=== PATIENT | male | born 1940 | race Caucasian/White ===

== ENCOUNTER → 2021-02-04 | Outpatient (REF) | payer MEDICARE, OTHER | LOC: M LAB REF 12:55 | PROVIDERS: ATTEND Internal Medicine Nephrology | DX: N18.2 Chronic kidney disease, stage 2 (mild) (principal) ==

== ENCOUNTER → 2022-01-24 | Outpatient (REF) | payer MEDICARE, OTHER | LOC: M SFHCDERM 17:32 | PROVIDERS: ATTEND Physician Assistant | DX: D04 Carcinoma in situ of skin (principal) ==